=== PATIENT | female | born 1960 | race Caucasian/White ===

== ENCOUNTER 2020-12-04 14:14 | Inpatient (IN) ==
[2020-12-04 15:55] LABS: Basophils # 0.1 K/mcL (0.0-0.2); Basophils % 0.9 %; Hematocrit 42.2 % (35.3-44.9); Hemoglobin 13.9 g/dL (11.5-15.4); Immature Granulocytes % 2.6 % (0-4); Lymphocytes # 1.1 K/mcL (0.6-4.6); Lymphocytes % 12.5 %; Mean Corpuscular HGB Conc 32.9 g/dL (31.6-35.5); Mean Corpuscular Hemoglobin 30.1 pg (28.0-33.3); Mean Corpuscular Volume 91.3 fL (83.0-100.0); Mean Platelet Volume 11.4 fL (9.4-12.4); Monocytes # 0.9 K/mcL (0.0-1.3); Monocytes % 10.1 %; Neutrophils # 6.6 K/mcL (1.6-8.9); Platelet Count 326 K/mcL (140-400); Red Blood Count 4.62 M/mcL (3.82-4.97); Red Cell Distribution Width 13.6 % (11.5-14.5); Segmented Neutrophils % 73.9 %
[2020-12-04 15:58] LABS: White Blood Count 8.9 K/mcL (4.3-11.1)
[2020-12-04 16:08] LABS: D-Dimer 471 ng/mLFEU (0-500)
[2020-12-04 16:16] LABS: Calcium 9.7 mg/dL (8.6-10.3); Potassium 3.4 mEq/L (3.5-5.1)
[2020-12-04 16:24] LABS: Troponin I 0.03 ng/mL (< 0.04)
[2020-12-04] MEDS ORDERED: Naloxone 0.4 MG/ML INJ IVP PRN (16:35)
[2020-12-04] MEDS ORDERED: Ondansetron ODT 4 MG TAB.RAPDIS SL PRN (16:35)
[2020-12-04] MEDS ORDERED: Melatonin 3 MG TABLET PO PRN (16:35)
[2020-12-04] MEDS ORDERED: Mag Hydrox/Al Hydrox/Simeth 30 ML UDC PO PRN (16:35)
[2020-12-04] MEDS ORDERED: 0.9 % Sodium Chloride 250 ML IVC ONE (16:38)
[2020-12-04] MEDS ORDERED: 0.9 % Sodium Chloride 1,000 ML IVC SCH (16:45)
[2020-12-04 16:46] LABS: Bilirubin,Direct 0.4 mg/dL (0.0-0.2); Bilirubin,Indirect 0.7 mg/dL (0.0-1.0); Bilirubin,Total 1.1 mg/dL (0.3-1.0); Globulin 4.2 g/dL (2.4-3.5); Total Protein 8.2 g/dL (6.4-8.9)
[2020-12-04 17:36] LABS: Fibrinogen 895 mg/dL (169-393)
[2020-12-04] MEDS: Ipratropium 1 PUFF INHALER IH SCH (19:44)
[2020-12-05] MEDS: Ipratropium 1 PUFF INHALER IH SCH ×6 (04:06→19:58)
[2020-12-05] MEDS: *HR* Enoxaparin 40 MG/0.4 ML SYRINGE SQ SCH (04:51)
[2020-12-05 05:46] LABS: Mean Corpuscular HGB Conc 32.5 g/dL (31.6-35.5); Mean Corpuscular Hemoglobin 30.7 pg (28.0-33.3); Mean Corpuscular Volume 94.6 fL (83.0-100.0); Mean Platelet Volume 11.6 fL (9.4-12.4); Platelet Count 295 K/mcL (140-400); Red Blood Count 4.23 M/mcL (3.82-4.97); Red Cell Distribution Width 13.7 % (11.5-14.5); White Blood Count 5.4 K/mcL (4.3-11.1)
[2020-12-05 06:06] LABS: Albumin 3.9 g/dL (3.5-5.7); Albumin/Globulin Ratio 1.1 (1.1-2.2); Bilirubin,Total 0.9 mg/dL (0.3-1.0); Calcium 9.4 mg/dL (8.6-10.3); Globulin 3.5 g/dL (2.4-3.5); Potassium 3.9 mEq/L (3.5-5.1); Total Protein 7.4 g/dL (6.4-8.9)
[2020-12-05 06:13] LABS: Monocytes # 0.1 K/mcL (0.0-1.3)
[2020-12-05 06:14] LABS: Platelet Estimate Normal (Normal); Reactive Lymphocytes Present (Not Present)
[2020-12-05] MEDS ORDERED: 0.9 % Sodium Chloride 500 ML IVC ONE (11:47)
[2020-12-05] MEDS ORDERED: ALPRAZolam 0.25 MG TABLET PO PRN (13:33)
[2020-12-06] MEDS: Ipratropium 1 PUFF INHALER IH SCH ×5 (00:07→15:51)
[2020-12-06] MEDS: *HR* Enoxaparin 40 MG/0.4 ML SYRINGE SQ SCH (05:08)
[2020-12-06 09:49] LABS: Calcium 9.1 mg/dL (8.6-10.3); Potassium 3.5 mEq/L (3.5-5.1)
[2020-12-06 16:23] VITALS: BP 123/79; PULSE 78; TEMP 98.7; O2SAT 91
== END 2020-12-06 18:36 | disposition home or self-care (01) | DRG 177 ==
LOC: SUATTDRO → EMEROOARM 14:14 → SUATTDRO 20:14 → 3NENU 20:14
PROVIDERS: ADMIT Family Medicine; ATTEND Family Medicine